=== PATIENT | female | born 1970 | race African-American/Black ===

== ENCOUNTER 2018-07-18 03:43 | Emergency (ER) | payer BC, OTHER ==
[2018-07-18 04:02] VITALS: BP 131/64; PULSE 105; TEMP 98.2; BMI 30.2
--- NOTE | 2018-07-18 04:15 | PDOC ---
History of Present Illness - General Chief Complaint: Injury Stated Complaint: FALL Time Seen by Provider: 07/18/18 04:03 - History of Present Illness Initial Comments: 07/18/18 04:09 47 yo F with no significant pmh who p/w left foot pain s/p mechanical fall. Patient reports stepping of of the pavement/curb and rolling her left ankle inwards with fall onto ground. Reports landing on both knees and hands. Endorses sudden onset of sharp, left sided lateral pain. Able to ambulate following fall, with left sided limp. Unable to bear weight at home, with increased pain around 0300AM Denies head/neck/back trauma or LOC. Denies h/o multiple falls. No open laceration. Patient denies LEUNG, vision change, N/V, F,C, CP, SOB, urinary complaints, abdominal pain, diarrhea, constipation, lightheadedness, weakness, sensory changes. PMHx: as noted above ROS: as noted Allergies: NKDA Past History - Past Medical History Allergies/Adverse Reactions: Allergies Allergy/AdvReac Type Severity Reaction Status Date / Time Penicillins Allergy Intermediate Verified 07/18/18 04:27 metoclopramide [From Reglan] AdvReac Verified 07/18/18 04:27 Home Medications: Ambulatory Orders NK [No Known Home Medication] 07/18/18 COPD: No - Suicide/Smoking/Psychosocial Hx Smoking History: Never smoked Hx Alcohol Use: No Drug/Substance Use Hx: No Review of Systems - Review of Systems Comments:: 07/18/18 04:15 GENERAL/CONSTITUTIONAL: No fever or chills. No weakness. HEAD, EYES, EARS, NOSE AND THROAT: No change in vision. No ear pain or discharge. No sore throat. CARDIOVASCULAR: No chest pain or shortness of breath RESPIRATORY: No cough, wheezing, or hemoptysis. GASTROINTESTINAL: No nausea, vomiting, diarrhea or constipation. GENITOURINARY: No dysuria, frequency, or change in urination. MUSCULOSKELETAL: + Left lateral ankle/foot pain. No neck or back pain. SKIN: No rash NEUROLOGIC: No headache, vertigo, loss of consciousness, or change in strength/ sensation. ENDOCRINE: No increased thirst. No abnormal weight change HEMATOLOGIC/LYMPHATIC: No anemia, easy bleeding, or history of blood clots. ALLERGIC/IMMUNOLOGIC: No hives or skin allergy. *Physical Exam - Vital Signs Last Vital Signs Temp Pulse Resp BP Pulse Ox 98.2 F 105 H 19 131/64 100 07/18/18 03:45 07/18/18 03:45 07/18/18 03:45 07/18/18 03:45 07/18/18 03:45 - Physical Exam Comments: 07/18/18 04:16 GENERAL: Awake, alert, and fully oriented, in no acute distress HEAD: No signs of trauma, normocephalic, atraumatic EYES: PERRLA, EOMI, sclera anicteric, conjunctiva clear ENT: Auricles normal inspection, hearing grossly normal, nares patent, oropharynx clear without exudates. Moist mucosa NECK: Normal ROM, supple, no lymphadenopathy, JVD, or masses LUNGS: No distress, speaks full sentences, clear to auscultation bilaterally HEART: Regular rate and rhythm, normal S1 and S2, no murmurs, rubs or gallops, peripheral pulses normal and equal bilaterally. EXTREMITIES : + left lateral midfoot/hindfoot ttp, with absent skin change, or obvious bony deformity. Neg Marcus test. Neg malleolar ttp. Normal range of motion, no edema. No clubbing or cyanosis. SKIN: Warm, Dry, normal turgor, no rashes or lesions noted Moderate Sedation - Procedure Monitoring Vital Signs: Procedure Monitoring Vital Signs Temperature 98.2 F 07/18/18 03:45 Pulse Rate 105 H 07/18/18 03:45 Respiratory Rate 19 07/18/18 03:45 Blood Pressure 131/64 07/18/18 03:45 O2 Sat by Pulse Oximetry (%) 100 07/18/18 03:45 Medical Decision Making - Medical Decision Making 07/18/18 04:13 47 yo F with no significant pmh who p/w left foot pain s/p mechanical fall. HR 105, vitals otherwise wnl, AF, A&Ox3. + left lateral midfoot/hindfoot ttp. LLE neurovascularly intact. + [place] ankle/foot rules. Unable to bear weight in ED. R/o ankle and foot fracture/dislocation. No evidence of closed head injury. Pain control, and reassess. Ed Course: LEFT FOOT/ANKLE RAD Patient declines analgesia 07/18/18 05:11 Preliminary foot/ankle RAD unremarkable. No acute fracture or dislocation. Stable for d/c with return precautions. Advised to use NSAID, rest, ICE, elevation. Patient ankle dressed in Walden dressing Patient to f/u with ortho *DC/Admit/Observation/Transfer Diagnosis at time of Disposition: Left foot pain - Discharge Dispostion Disposition: HOME Condition at time of disposition: Stable Decision to Admit order: No - Referrals Referrals: Eulalio Jordan MD [Staff Physician] - - Patient Instructions Printed Discharge Instructions: DI for Foot Pain, DI for Foot Sprain Additional Instructions: Please return to the emergency department with any new or worsening symptoms or concerns. Please follow up with your primary care physician within 72 hours. Can take 600 mg Ibuprofen every 4-6 hours as needed for pain. Please follow up with orhtopedics within 72 hours. - Post Discharge Activity - Attestations Physician Attestion: 07/18/18 04:25 I attest to the information provided in this note.
--- NOTE | 2018-07-18 05:59 | PDOC ---
Attending Attestation - Resident Resident Name: Juventino Lezama - ED Attending Attestation I have performed the following: I have examined & evaluated the patient, The case was reviewed & discussed with the resident, I agree w/resident's findings & plan - HPI HPI: 07/18/18 05:55 Pt comes with right foot dorsal lateral aspect swelling. She states that she inverted her ankle earlier in the night as she stepped off a sidewalk. She was able to get up and continue walking. She states that she went to a [employer] and attended it. She got home and slept and suddenly she realized that her ankle was in a great deal of pain. She comes to the ER for eval. - Physicial Exam PE: 07/18/18 05:57 She has minimal swelling at the dorsal aspect of the midfoot. Pt has normal Marcus test. She has achilles tendons intact bilaterally. Pt has no other physical findings. She has no medial or lateral malleolar tenderness. Only minimal base of 5th metatarsal tenderness. - Medical Decision Making 07/18/18 05:58 Home with bulky Walden dressing. Follow with ortho or podiatry and consider getting a CAM walker for comfort.
== END 2018-07-18 06:00 | disposition home or self-care (01) ==
LOC: JER 03:43
DX: M79.672 Pain in left foot (principal)
CPT/HCPCS: 73610-TC-LT-FY; 73630-TC-LT; 99281-25